=== PATIENT | female | born 1990 | race Caucasian/White ===

== ENCOUNTER 2023-05-01 07:54 | Day surgery (SDC) | payer OTHER ==
[~2023-05-01] VITALS: Ht 160 cm; Wt 74.8 kg
[2023-05-01] MEDS ORDERED: diphenhydrAMINE 50 MG/ML VIAL ONE (08:59)
[2023-05-01] MEDS ORDERED: MIDAZOLAM 5 MG/5 ML VIAL ONE (08:59)
[2023-05-01] MEDS ORDERED: fentaNYL citrate 0.05 MG/ML VIAL ONE (08:59)
[2023-05-01] MEDS ORDERED: MIDAZOLAM 2 MG/2 ML VIAL IV SCH (16:30)
== END 2023-05-01 10:51 | disposition home or self-care (01) ==
LOC: MDS 07:54 → MMU 08:02 → MDS 10:51
PROVIDERS: ATTEND Internal Medicine Gastroenterology
DX: K62.5 Hemorrhage of anus and rectum (principal); I10 Essential (primary) hypertension; J45.909 Unspecified asthma, uncomplicated; G43.909 Migraine, unspecified, not intractable, without status migrainosus; F41.9 Anxiety disorder, unspecified; F32.A Depression, unspecified; K59.00 Constipation, unspecified; E66.09 Other obesity due to excess calories; Z68.44 Body mass index [BMI] 60.0-69.9, adult
CPT/HCPCS: 45378; J1200; J2250; J3010